=== PATIENT | female | born 1960 | race Caucasian/White ===

== ENCOUNTER 2016-07-23 22:47 | Emergency (ER) | payer OTHER ==
[2016-07-23] MEDS ORDERED: LIDOCAINE 5% PATCH ONE (23:50)
[2016-07-24] MEDS ORDERED: METHOCARBAMOL 750 MG TABLET ONE (01:09)
--- NOTE | 2016-07-24 08:07 | RAD ---
THORACIC DORSAL SPINE 3 VIEW COMPARISON: None. HISTORY: 56 old female. Low back and bilateral hip pain after falling off a skateboard 2 years ago. Pain increasing over time. FINDINGS: Views: Thoracic spine AP, lateral, swimmer's lateral. Vertebral alignment: Flattened thoracic kyphosis. S shaped scoliosis of the thoracic spine. Vertebral bodies: Normal mineralization. Mild to moderate osteophytes at multiple levels. No acute or chronic fracture. Disc heights: Minimal narrowing at multiple levels. Pedicles and posterior arches: Normal Paraspinal soft tissues: Normal. Posterior ribs: Normal. IMPRESSION: 1. No acute finding. 2. S-shaped scoliosis of the thoracolumbar spine and hypokyphosis of the thoracic spine. 2. Mild to moderate multilevel spondylosis.
--- NOTE | 2016-07-24 08:10 | RAD ---
LUMBAR SPINE ROUTINE 2 3 VWS COMPARISON: None. HISTORY: Low back/bilateral hip pain after ground-level fall off of a skateboard 2 years ago. Pain increasing over time. FINDINGS: Views: Lumbar spine AP and lateral. AP L5-S1 spot. Vertebral alignment: Moderate levoscoliosis of the lumbar spine. Vertebral bodies: Normal mineralization. No acute or chronic fracture. Large osteophytes at multiple levels. Intervertebral discs: Moderate to severe narrowing, L1-2 through L4-5. Pedicles: Normal. Facet joints and posterior arches: Mild degenerative changes in the lower lumbar spine. Sacroiliac joints: Normal. Soft tissues: Surgical clips in the right upper quadrant. IMPRESSION: 1. No acute finding. 2. Moderate levoscoliosis and moderate to severe spondylosis of the lumbar spine.
--- NOTE | 2016-07-24 08:11 | RAD ---
PELVIS COMPARISON: None HISTORY: Worsening bilateral hip pain after a fall off of a skateboard 2 years ago. FINDINGS: Views: AP pelvis. Bones: Normal. Joints: Normal joint spacing at the hips, symphysis pubis, and sacroiliac joints. Aspherical femoral heads. Soft tissues: Normal. IMPRESSION: 1. 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
== END 2016-07-24 01:25 | disposition home or self-care (01) ==
LOC: ED 22:47
DX: M54.40 Lumbago with sciatica, unspecified side (principal); M53.3 Sacrococcygeal disorders, not elsewhere classified; M54.6 Pain in thoracic spine; E07.9 Disorder of thyroid, unspecified; F17.210 Nicotine dependence, cigarettes, uncomplicated
CPT/HCPCS: 72100; 72170; 72072; 99283 ×2; A9270 ×2